=== PATIENT | female | born 1955 ===

== ENCOUNTER 2024-06-26 07:02 | Emergency (ER) | payer MEDICARE ==
[2024-06-26] MEDS: Sodium Chloride 0.9% 10 ML Syringe FLUSH PRN ×2 (07:54→10:49)
[2024-06-26] MEDS: Albuterol/Ipratropium 3.0-0.5 MG/3 ML Neb Soln NEB ONE (07:56)
[2024-06-26 08:07] LABS: BASOPHILS ABSOLUTE AUTO 0.1 K/mm3 (0.0-0.2); BASOPHILS PERCENT AUTO 0.5 % (0.0-1.0); EOSINOPHILS ABSOLUTE AUTO 0.8 K/mm3 (0.0-0.4); EOSINOPHILS PERCENT AUTO 8.4 % (0.0-6.0); HEMATOCRIT 51.5 % (37.0-47.0); HEMOGLOBIN 16.1 gm/dl (12.0-16.0); IMMATURE GRAN ABSOLUTE AUTO 0.04 K/mm3 (0.00-0.05); IMMATURE GRAN PERCENT AUTO 0.4 % (0.0-0.4); LYMPHOCYTES ABSOLUTE AUTO 1.6 K/mm3 (1.0-4.8); LYMPHOCYTES PERCENT AUTO 17.4 % (24.0-44.0); MEAN CORPUSCULAR HGB CONC 31.3 g/dl (32.0-36.0); MEAN CORPUSCULAR VOLUME 92.6 fl (83.0-99.0); MEAN PLATELET VOLUME 10.6 fl (9.4-12.3); MONOCYTES ABSOLUTE AUTO 0.5 K/mm3 (0.0-0.8); MONOCYTES PERCENT AUTO 5.4 % (0.0-8.0); NEUTROPHILS ABSOLUTE AUTO 6.3 K/mm3 (1.8-7.7); NEUTROPHILS PERCENT AUTO 67.9 % (41.0-71.0); PLATELET COUNT,PLT 212 K/mm3 (150-400); RED BLOOD CELL COUNT 5.56 M/mm3 (4.10-5.30); WHITE BLOOD CELL COUNT,WBC 9.24 K/mm3 (3.9-11.3)
[2024-06-26 08:37] LABS: LACTIC ACID 1.6 mmol/L (0.4-2.0)
[2024-06-26 08:44] LABS: A/G RATIO 1.2 (1-2); ANION GAP 14.3 (5-15); BILIRUBIN TOTAL 0.4 mg/dL (0.2-1.0); BUN/CREATININE RATIO 12.7 (14-18); C-REACTIVE PROTEIN 0.31 mg/dL (<0.30); CALCIUM 9.5 mg/dL (8.5-10.1); CREATININE 1.1 mg/dL (0.55-1.02); EST CRCL DRUG DOSING (CG) 45.19 mL/min; MAGNESIUM 1.5 mg/dL (1.8-2.4); POTASSIUM,K 4.3 mEq/L (3.5-5.1); PROTEIN TOTAL,TP 7.4 g/dl (6.4-8.2)
[2024-06-26] MEDS: Metoprolol Tartrate 5 MG/5 ML SDV IVPUSH ONE (09:02)
[2024-06-26] MEDS: Sodium Chloride 0.9% 1,000 ML IV ONE (09:02)
[2024-06-26] MEDS: Sodium Chloride 0.9% 100 ML IV SCH (10:48)
[2024-06-26] MEDS: Iopamidol 755 Mg/ML 100 ML Bottle IVPUSH ONE (10:48)
[2024-06-26] MEDS: Magnesium Sulfate/Water Premix 2 GM in Premix Bag 1 BAG IV ONE (11:58)
[2024-06-26 20:22] VITALS: BP 148/80; PULSE 88
== END 2024-06-26 13:30 | disposition home or self-care (01) ==
LOC: JD.ED 07:02
DX: I47.19 Other supraventricular tachycardia (principal); R09.02 Hypoxemia; Z88.2 Allergy status to sulfonamides; Z79.899 Other long term (current) drug therapy; Z79.84 Long term (current) use of oral hypoglycemic drugs
CPT/HCPCS: 36415; 71045; 71275; 80053; 83605; 83735; 83880; 84484; 85025; 85379; 86140; 87040; 87428; 93005; 94640; 96361; 96365; 96366; 96375; 99285; J3475; J3490; J7030; Q9967; J7620-GY